=== PATIENT | male | born 1945 | race Caucasian/White ===

== ENCOUNTER 2016-03-02 07:19 | Observation (INO) | payer OTHER, MEDICARE ==
[2016-02-18 10:09] VITALS: BMI 22.0
--- NOTE | 2016-02-18 11:00 | PAT Medication Instructions ---
Service Date Feb 18, 2016. Current Home Medication List Acetaminophen Tab (Tylenol), 325 MG PO PRN Albuterol Hfa (Ventolin Hfa), 2 PUFFS INH Q6H PRN for PRN Alprazolam (Xanax), 0.25 MG PO HS PRN for RN Amlodipine (Norvasc), 10 MG PO QPM Aspirin (Aspirin Ec), 81 MG PO QAM Atenolol (Tenormin), 25 MG PO QPM Cholecalciferol (Vitamin D3), 1,000 UNITS PO QAM Citalopram Hydrobromide (Celexa), 20 MG PO QAM Fish Oil ([place]-3), 1 CAP PO QPM Losartan Potassium (Cozaar), 100 MG PO QAM Multivitamin (Multivitamin), 1 TAB PO QAM Pantoprazole (Protonix), 40 MG PO QAM Ranitidine Hcl (Zantac), 300 MG PO QPM Rosuvastatin Calcium (Crestor), 2.5 MG PO QPM [Advair], 2 PUFFS INH Q6H PRN for RN [Ambien], 5 TAB PO HS PRN for RN [Calcium], 600 MG PO QAM Medication Instructions For Your Scheduled Surgery Aspirin (Aspirin Ec), 81 MG PO QAM (per surgeon instructions) - Hold the following medications 2 weeks prior to surgery: Fish Oil ([place]-3), 1 CAP PO QPM - Hold the following medications the morning of surgery: Calcium 600 MG PO QAM. Losartan Potassium (Cozaar), 100 MG PO QAM Multivitamin (Multivitamin), 1 TAB PO QAM Cholecalciferol (Vitamin D3), 1,000 UNITS PO QAM - Take the following medications the morning of surgery with a sip of water: Advair 2 PUFFS INH Q6H PRN for RN Pantoprazole (Protonix), 40 MG PO QAM Citalopram Hydrobromide (Celexa), 20 MG PO QAM Acetaminophen Tab (Tylenol), 325 MG PO PRN (if needed) Albuterol Hfa (Ventolin Hfa), 2 PUFFS INH Q6H PRN for PRN (bring with you to hospital on day of surgery) - Take the following medications as scheduled the night before surgery: Ambien 5 TAB PO HS PRN for RN Advair 2 PUFFS INH Q6H PRN for RN Rosuvastatin Calcium (Crestor), 2.5 MG PO QPM Ranitidine Hcl (Zantac), 300 MG PO QPM Atenolol (Tenormin), 25 MG PO QPM Amlodipine (Norvasc), 10 MG PO QPM Alprazolam (Xanax), 0.25 MG PO HS PRN for RN Acetaminophen Tab (Tylenol), 325 MG PO PRN Albuterol Hfa (Ventolin Hfa), 2 PUFFS INH Q6H PRN for PRN If you have any questions please call us at [phone] or [phone] ( Kristen) or [phone]
[~2016-03-02] VITALS: Ht 177.8 cm; Wt 70.8 kg
[2016-03-02] VITALS (11 sets, daily range): BP systolic 113–154; BP diastolic 67–87; PULSE 76–103; TEMP 36.4–36.8; O2SAT 92–97; Ht 177.8 cm; Wt 70.8 kg
[~2016-03-02 07:19] MED LIST: ACET325T96 PO; ADVAIR INH; ALPR-411 PO; AMBIEN PO; AMLO-114 PO; ASPI81TA28 PO; ATEN-173 PO; CALC-51 PO; CHOL1CAP57 PO; CIPROFLOXACIN / D5W 400 MG IV SCH; CITA20TA9 PO; DEXAMETHASONE SOD INJ 4 MG/ML VIAL ONE; FENTANYL CITRATE INJ 50 MCG/1 ML 2 ML VIAL ONE; LACTATED RINGER'S 1000ML 1,000 ML IV SCH; LIDOCAINE HCL 2% 2 ML VIAL (20MG/ML) ONE; LOSA100T65 PO; MIDAZOLAM HCL 1 MG/ML 2ML VIAL ONE; MULT-506 PO; OMEG10007 PO; ONDANSETRON INJ 2 MG/ML 2 ML VIAL ONE; PANT40TA PO; PROPOFOL IV EMULSION 10 MG/ML 20 ML VIAL IV ONE; RANI300T2 PO; ROSU5TAB PO; VNTHFA/IN INH
[2016-03-02] MEDS ORDERED: FENTANYL CITRATE INJ 50 MCG/1 ML 2 ML VIAL IV PRN (08:15)
[2016-03-02] MEDS ORDERED: ATROPINE SULFATE 0.1 MG/ML 5ML SYR IV PRN (08:15)
[2016-03-02] MEDS ORDERED: EpHEDrine SULFATE INJ 50 MG/ML AMP IV PRN (08:15)
--- NOTE | 2016-03-02 09:04 | History & Physical Bridge Note ---
H&P Re-Evaluation Bridge Note: I have examined the patient, reviewed the History & Physical and in the interval since the performance of the History & Physical I have noted the following changes of clinical significance: No changes noted
[2016-03-02] MEDS ORDERED: EpHEDrine SULFATE INJ 50 MG/ML AMP ONE (09:45)
--- NOTE | 2016-03-02 10:22 | [facility] Post Operative Brief Note ---
Immediate Operative Summary Operative Date Mar 02, 2016. Pre-Operative Diagnosis Benign Prostatic Hyperplasia with severe lower urinary tract symptoms Post-Operative Diagnosis Same as preoperative diagnosis Procedure(s) Performed Cystoscopy, Bipolar Transurethral Resection of Prostate Surgeon Dr. Dorian Velázquez Grader Marker Surgeon(s) None Estimated Blood Loss 10 mL Findings Very large intravesical median lobe of the prostate. Resected entirely. Moderate lateral lobe hypertrophy resected. Several diverticuli of the bladder - one near the dome. One near the left UO - with the UO itself visible on the lip of the tic. Specimens Permanent specimens A: Prostate chips Drains 22F davies Anesthesia Gen Complication(s) None Disposition Recovery Room / PACU (stable)
[2016-03-02] MEDS ORDERED: ZOLPIDEM TARTRATE 5 MG TAB PO PRN (10:30)
[2016-03-02] MEDS ORDERED: ONDANSETRON INJ 2 MG/ML 2 ML VIAL IV PRN (10:30)
[2016-03-02] MEDS ORDERED: ACETAMINOPHEN 325 MG TAB PO PRN (10:30)
[2016-03-02] MEDS ORDERED: ALBUTEROL HFA 8 GM INHALER INH PRN (10:30)
[2016-03-02] MEDS ORDERED: ALPRAZOLAM 0.25 MG TAB PO PRN (10:30)
[2016-03-02] MEDS ORDERED: ACETAMINOPHEN/CODEINE 300/30MG TAB PO PRN ×2 (10:30)
[2016-03-02] MEDS ORDERED: IV FLUIDS COMPLETED PRN (10:45)
--- NOTE | 2016-03-02 11:09 | Anesthesiology Progress Note ---
Anesthesia Post Op Note Date & Time Mar 02, 2016 at 11:08 Vital Signs Pain Intensity: 0 Vital Signs Past 12 Hours Date Time Temp Pulse Resp B/P Pulse Ox O2 Delivery O2 Flow Rate FiO2 03/02/16 10:38 36.2 89 10 139/93 100 Mask 10 03/02/16 07:46 36.8 76 18 154/87 97 Room Air Notes Mental Status: alert / awake / arousable, participated in evaluation Pt Amnestic to Procedure: Yes Nausea / Vomiting: adequately controlled Pain: adequately controlled Airway Patency, RR, SpO2: stable & adequate BP & HR: stable & adequate Hydration State: stable & adequate Anesthetic Complications: no major complications apparent
[2016-03-02] MEDS: LACTATED RINGER'S 1000ML 1,000 ML IV SCH ×2 (12:01→19:04)
--- NOTE | 2016-03-02 12:37 | OPERATIVE REPORT ---
DATE OF OPERATION: 03/02/2016 PREOPERATIVE DIAGNOSIS: Benign prostatic hypertrophy with significant urinary tract obstruction. POSTOPERATIVE DIAGNOSIS: Same. PROCEDURE PERFORMED: Cystoscopy and transurethral resection of prostate. ANESTHESIA: General. ESTIMATED BLOOD LOSS: 10 mL. URINE OUTPUT: Not recorded. SPECIMENS: Prostate chips for routine pathology. DESCRIPTION OF THE PROCEDURE: Palomo Araya was identified in the preoperative holding area. Appropriate informed consents were reviewed and completed and the patient was transported to the operating suite. He received ciprofloxacin and general anesthesia and was placed in the dorsal lithotomy position, where he was sterilely prepped and draped. To begin the case, I gently dilated the urethral meatus utilizing male urethral sounds. This was dilated to 26 [place]. I then gently inserted a 26-[place] resectoscope and advanced it through the urethra without difficulty. There was no evidence of stricture disease. Prostate was notably enlarged with lateral lobe hypertrophy as well as a significant intravesical median lobe, which was largely obstructing the bladder neck. I was able to navigate the scope beyond it and identified the right ureteral orifice without difficulty. On the left side, there was a bladder diverticulum in the presumed area of the left UO and with gentle manipulation, I was able to identify the UO on the neck of this tic. There was additional diverticulum near the dome on the upper posterior wall. Otherwise, the bladder mucosa was healthy appearing despite the trabeculation. After this full inspection, I exchanged the visual obturator for a resecting element and I elected to use a loop. I performed 2 incisions in the bladder neck extending from the area of the UOs back towards the verumontanum and then I resected the median lobe entirely utilizing the loop. This created a wide open bladder neck and I proceeded to resect the right lateral lobe and the left lateral lobe to complete my resection. After confirming excellent hemostasis, I evacuated all chips. To conclude the case, I withdrew the scope and passed a 22-[place] Oakes catheter. There were no complications. The patient was extubated and taken to the PACU in stable condition. I attest to the content of the Intraoperative Record and any orders documented therein. Any exceptio ns are noted below.
[2016-03-02] MEDS: DOCUSATE SODIUM 100 MG CAP PO SCH (20:52)
[2016-03-02] MEDS ORDERED: RANITIDINE HCL 150 MG TAB PO SCH (21:00)
[2016-03-02] MEDS ORDERED: ROSUVASTATIN CALCIUM 5 MG TAB PO SCH (21:00)
[2016-03-02] MEDS ORDERED: AMLODIPINE BESYLATE 5 MG TAB PO SCH (21:00)
[2016-03-03] MEDS: LACTATED RINGER'S 1000ML 1,000 ML IV SCH ×2 (02:28→10:22)
[2016-03-03 02:50] VITALS: BP 124/68; PULSE 80; TEMP 36.8; O2SAT 95
[2016-03-03 06:40] LABS: COMPLETE YES; HEMATOCRIT 35.1 % (42-52); IG% 0.2 %; LYMPH ABS # 0.76 K/uL (1.2-3.4); MEAN CELL VOLUME 88.9 fL (80-100); MEAN CORPUSCULAR HEMOGLOBIN 30.4 pg (25-34); MEAN CORPUSCULAR HGB CONC 34.2 g/dl (32-36); MEAN PLATELET VOLUME 10.2 fL (7.4-10.4); MONO % 7.5 %; NEUT % 86.3 %; PLATELET COUNT 187 K/uL (130-400); RED BLOOD COUNT 3.95 M/uL (4.7-6.1); WHITE BLOOD COUNT 12.74 K/uL (4.8-10.8)
[2016-03-03 07:13] LABS: BUN/CREATININE RATIO 16.8 (10-20); CALCIUM 8.6 mg/dl (8.5-10.1); CREATININE 1.2 mg/dl (0.60-1.40); POTASSIUM 4.2 mmol/L (3.5-5.1)
--- NOTE | 2016-03-03 08:23 | Progress Note ---
Subjective Date of Service: Mar 03, 2016. (Mary Ann Khan CRNP) Subjective Pt evaluation today including: conversation w/ patient, chart review Voiding: davies catheter in place (patent, draing light pink urine in the tube) 70 yo male s/p TURP. Pt reports he feels well this morning. C/o some clot overnight, but davies now draining light pink urine. Denies n/v. Labs stable. WBCs 12.74 this morning. He c/o constipation this morning. (Mary Ann Khan CRNP) Review of Systems Constitutional: No chills, No fever Respiratory: No shortness of breath Cardiac: No chest pain Abdomen: + constipation, No nausea, No pain, No vomiting Male : + hematuria (Mary Ann Khan CRNP) Objective Vital Signs Date Time Temp Pulse Resp B/P Pulse Ox O2 Delivery O2 Flow Rate FiO2 03/03/16 07:45 Room Air 03/03/16 02:50 36.8 80 17 124/68 95 Room Air 03/03/16 00:45 Room Air 03/02/16 22:53 36.7 88 18 123/74 92 Room Air 03/02/16 20:55 36.7 03/02/16 20:49 98 135/80 03/02/16 19:08 103 144/75 03/02/16 16:00 95 Room Air 03/02/16 15:07 36.6 97 18 147/78 95 03/02/16 13:35 36.4 96 16 113/67 94 Room Air 03/02/16 12:35 36.7 97 16 128/70 03/02/16 12:03 97 16 132/74 94 Room Air 03/02/16 11:35 95 Room Air 03/02/16 11:35 95 Room Air 03/02/16 11:35 36.5 93 16 145/78 95 Room Air 03/02/16 11:24 87 16 92 03/02/16 11:24 87 16 03/02/16 11:19 90 16 95 03/02/16 11:19 90 16 03/02/16 11:18 141/86 03/02/16 11:16 36.4 03/02/16 11:14 87 16 93 03/02/16 11:14 87 16 03/02/16 11:13 135/82 03/02/16 11:09 92 15 89 03/02/16 11:09 93 15 03/02/16 11:08 88 16 140/84 91 03/02/16 11:08 88 16 03/02/16 11:03 93 16 135/85 95 03/02/16 11:03 92 16 03/02/16 10:58 93 16 03/02/16 10:58 92 19 123/88 97 03/02/16 10:53 90 16 03/02/16 10:53 90 16 129/86 100 03/02/16 10:48 90 11 142/76 100 03/02/16 10:48 90 11 03/02/16 10:43 87 12 139/85 100 03/02/16 10:43 88 12 03/02/16 10:38 36.2 89 10 139/93 100 Mask 10 03/02/16 10:38 90 14 03/02/16 10:38 90 14 137/82 100 (Mary Ann Khan CRNP) Physical Exam General Appearance: no apparent distress Eyes: normal inspection ENT: hearing grossly normal Neck: no JVD Respiratory/Chest: no respiratory distress, no accessory muscle use Cardiovascular: no JVD Extremities: normal inspection Neurologic/Psychiatric: alert, normal mood/affect, oriented x 3 Skin: normal color (Mary Ann Khan CRNP) Laboratory Results Last 24 Hours Test 03/03/16 06:17 White Blood Count 12.74 K/uL Red Blood Count 3.95 M/uL Hemoglobin 12.0 g/dL Hematocrit 35.1 % Mean Corpuscular Volume 88.9 fL Mean Corpuscular Hemoglobin 30.4 pg Mean Corpuscular Hemoglobin Concent 34.2 g/dl Platelet Count 187 K/uL Mean Platelet Volume 10.2 fL Neutrophils (%) (Auto) 86.3 % Lymphocytes (%) (Auto) 6.0 % Monocytes (%) (Auto) 7.5 % Eosinophils (%) (Auto) 0.0 % Basophils (%) (Auto) 0.0 % Neutrophils # (Auto) 11.00 K/uL Lymphocytes # (Auto) 0.76 K/uL Monocytes # (Auto) 0.96 K/uL Eosinophils # (Auto) 0.00 K/uL Basophils # (Auto) 0.00 K/uL RDW Standard Deviation 43.8 fL RDW Coefficient of Variation 13.4 % Immature Granulocyte % (Auto) 0.2 % Immature Granulocyte # (Auto) 0.02 K/uL Sodium Level 139 mmol/L Potassium Level 4.2 mmol/L Chloride Level 102 mmol/L Carbon Dioxide Level 29 mmol/L Anion Gap 8.0 mmol/L Blood Urea Nitrogen 20 mg/dl Creatinine 1.20 mg/dl Est Creatinine Clear Calc Drug Dose 59.0 ml/min Estimated GFR () 71.6 Estimated GFR (Non- 61.8 BUN/Creatinine Ratio 16.8 Random Glucose 112 mg/dl Calcium Level 8.6 mg/dl (Mary Ann Khan CRNP) Assessment and Plan POD #1 s/p TURP. AFVSS. Will d/c davies catheter this morning and attempt a TOV. D/c home after breakfast if pt able to void. Will d/c home on Colace, Pyridium, Cipro, and [place]. Will order Miralax for constipation. F/u outpatient as scheduled with Dr. Velázquez. Discharge planning: home (Mary Ann Khan CRNP) Doing very well - no issues overnight - urine clearing appropriately - d/c catheter and d/c home later assuming he voids (Dorian Velázquez M.D.)
[2016-03-03] MEDS ORDERED: CLC100 PO (08:26)
[2016-03-03] MEDS ORDERED: CIPR1TAB10 PO (08:26)
[2016-03-03] MEDS ORDERED: HYDR-5688 PO (08:26)
[2016-03-03] MEDS ORDERED: PHEN-876 PO (08:26)
--- NOTE | 2016-03-03 08:32 | Discharge Instructions ---
Discharge Instructions Admission Reason for Admission: Benign Prostatic Hyperplasia Discharge Discharge Diagnosis / Problem: Benign Prostatic Hyperplasia Discharge Goals Goal(s): Decrease discomfort, Therapeutic intervention Activity Recommendations Activity Limitations: as noted below Lifting Limitations: gradually increase as tolerated Exercise/Sports Limitations: gradually increase as tolerated May Resume Sexual Activity: after follow-up appointment Shower/Bathe: no limitations Driving or Machine Use: resume 1 day after discharge . Instructions / Follow-Up Instructions / Follow-Up 1. You have been prescribed the antibiotic Ciprofloxacin. Finish all as directed. 2. You may resume taking your Aspirin in 2 days if urine is clear. 3. You may resume taking your fish oil in 1 week if urine is clear. 4. Follow-up with Dr. Velázquez as scheduled. Current Hospital Diet Hospital Diet(s): Regular Diet Discharge Diet Recommended Diet: Regular Diet Procedures Procedures Performed: Cystoscopy, Bipolar Transurethral Resection of Prostate Pending Studies Studies pending at discharge: no Medical Emergencies . Who to Call and When: Medical Emergencies: If at any time you feel your situation is an emergency, please call 911 immediately. . Non-Emergent Contact Non-Emergency issues call your: Urologist Call Non-Emergent contact if: temperature is above 101.5, your pain is not controlled, your pain is worsening, your pain is unusual for you, your pain is concerning you, you have any medication questions . . "Provider Documentation" section prepared by Mary Ann Khan. VTE Core Measure Inpt VTE Proph given/why not?: SCD's [place] Drug Monitoring Program Search Results: patient reviewed within database, no issues identified
[2016-03-03] MEDS: DOCUSATE SODIUM 100 MG CAP PO SCH (08:59)
[2016-03-03] MEDS ORDERED: PANTOprazole SOD 40 MG TAB PO SCH (09:00)
[2016-03-03] MEDS ORDERED: MULTIVITAMIN TAB PO SCH (09:00)
[2016-03-03] MEDS ORDERED: LOSARTAN POTASSIUM 50 MG TAB PO SCH (09:00)
[2016-03-03] MEDS ORDERED: POLYETHYLENE (MIRALAX) 17 GM PACK PO SCH (09:00)
[2016-03-03] MEDS ORDERED: CITALOPRAM 20 MG TAB PO SCH (09:00)
--- NOTE | 2016-03-03 10:15 | Anesthesiology Progress Note ---
Anesthesia Post Op Note Date & Time Mar 03, 2016 at 10:14 Vital Signs Pain Intensity: 8.0 Vital Signs Past 12 Hours Date Time Temp Pulse Resp B/P Pulse Ox O2 Delivery O2 Flow Rate FiO2 03/03/16 07:45 Room Air 03/03/16 02:50 36.8 80 17 124/68 95 Room Air 03/03/16 00:45 Room Air 03/02/16 22:53 36.7 88 18 123/74 92 Room Air Notes Mental Status: alert / awake / arousable, participated in evaluation Pt Amnestic to Procedure: Yes Nausea / Vomiting: adequately controlled Pain: adequately controlled Airway Patency, RR, SpO2: stable & adequate BP & HR: stable & adequate Hydration State: stable & adequate Anesthetic Complications: no major complications apparent
[2016-03-03 10:38] VITALS: BP 124/68; PULSE 80; TEMP 36.8; O2SAT 95
--- NOTE | 2016-03-05 08:40 | Discharge Summary ---
Discharge Summary Admission Date: Mar 02, 2016 at 10:26 Discharge Date: Mar 03, 2016 Discharge Disposition: Home Principal Diagnosis: BPH Procedures: TURP Medication Reconciliation New Medications: Ciprofloxacin Hcl (Cipro) 500 Mg Tab 500 MG PO BID, #14 TAB Hydrocodone/Acetaminophen 5MG/325MG ([place] 5MG/325MG) Tab 1 TABLET PO Q4 PRN for Pain, #10 TAB Phenazopyridine HCl (Pyridium) 200 Mg Tab 200 MG PO TID for Bladder pain, #15 TAB Docusate Sodium (Docusate Sodium) 100 Mg Cap 100 MG PO BID PRN for Constipation, #30 CAP 0 Refills Continued Medications: Acetaminophen Tab (Tylenol) 325 Mg Tab 325 MG PO PRN, TAB Albuterol Hfa (Ventolin Hfa) 200 Puffs/44086 [place] 2 PUFFS INH Q6H PRN for PRN, #1 INHALER Alprazolam (Xanax) 0.5 Mg Tab 0.25 MG PO HS PRN for RN, TAB Amlodipine (Norvasc) 10 Mg Tab 10 MG PO QPM, TAB Atenolol (Tenormin) 25 Mg Tab 25 MG PO QPM, TAB Cholecalciferol (Vitamin D3) 1,000 Unit Cap 1000 UNITS PO QAM Citalopram Hydrobromide (Celexa) 20 Mg Tab 20 MG PO QAM, TAB Losartan Potassium (Cozaar) 100 Mg Tab 100 MG PO QAM, TAB Multivitamin (Multivitamin) Tab 1 TAB PO QAM, TAB Pantoprazole (Protonix) 40 Mg Tab 40 MG PO QAM, #30 TAB Ranitidine Hcl (Zantac) 300 Mg Tab 300 MG PO QPM, TAB Rosuvastatin Calcium (Crestor) 5 Mg Tab 2.5 MG PO QPM, TAB [Advair] () 2 PUFFS INH Q6H PRN for RN [Ambien] () 5 TAB PO HS PRN for RN [Calcium] () 600 MG PO QAM Discontinued Medications: Aspirin (Aspirin Ec) 81 Mg Tab 81 MG PO QAM Fish Oil ([place]-3) 1 Ea Cap 1 CAP PO QPM, CAP Hospital Course Admitted to the hospital for TURP. Details of the procedure as dictated previously in the operative report, however, in summary, he tolerated the procedure very well. He was in stable condition on the morning of post op day # 1, urine had cleared appropriately. He subsequently passed a voiding trial and was discharged home in stable condition. Total time spent on discharge = This includes examination of the patient, discharge planning, medication reconciliation, and communication with other providers. Discharge Instructions Please see previously written d/c instructions
== END 2016-03-03 11:20 | disposition home or self-care (01) ==
LOC: ENRESERVTM → ENRESERVDT → C.ACU 07:19 → C.MSN 10:26
PROVIDERS: ADMIT Urology; ATTEND Urology
DX: N40.1 Benign prostatic hyperplasia with lower urinary tract symptoms (principal); N13.8 Other obstructive and reflux uropathy; J45.909 Unspecified asthma, uncomplicated; E05.00 Thyrotoxicosis with diffuse goiter without thyrotoxic crisis or storm; E78.5 Hyperlipidemia, unspecified; I10 Essential (primary) hypertension; Z82.49 Family history of ischemic heart disease and other diseases of the circulatory system; Z84.1 Family history of disorders of kidney and ureter; Z79.82 Long term (current) use of aspirin; Z79.899 Other long term (current) drug therapy